=== PATIENT | male | born 1980 | race Hispanic/Latino ===

== ENCOUNTER → 2020-11-02 | Day surgery (SDC) | payer OTHER ==
[~2020-11-02] MED LIST: CYCLOBENZAPRINE10 MG PO; FENTANYL CITRATE/PF 100MCG/2 ML INJ ONE; IOPAMIDOL 200 MG/ML 20 ML VIAL IT ONE; LIDOCAINE HCL 1% 30ML-PF VIAL ONE; LIDOCAINE HCL 2% LOCAL INJ 5 ML SDV VIAL INJ ONE; MIDAZOLAM HCL 2 MG/2 ML VIAL ONE; POVIDONE IODINE 0.05% 0.05 % ML PO ONE; PROPOFOL IV EMULSION 10 MG/ML 20 ML VIAL ONE; SUMATRIPTAN SUC25 MG PO; TRIAMCINOLONE ACET 40 MG/ML VIAL ONE
[2020-11-02 08:20] VITALS: BP 114/61
== END | disposition home or self-care (01) ==
LOC: OR 06:01
PROVIDERS: ATTEND Physical Medicine & Rehabilitation Pain Medicine
DX: M47.896 Other spondylosis, lumbar region (principal); M54.2 Cervicalgia; G43.909 Migraine, unspecified, not intractable, without status migrainosus; E78.5 Hyperlipidemia, unspecified; N20.0 Calculus of kidney; Z01.812 Encounter for preprocedural laboratory examination; Z20.822 Contact with and (suspected) exposure to COVID-19; Z87.891 Personal history of nicotine dependence
CPT/HCPCS: 64493; 64494; 64495; J2001 ×2; J2250; J2704; J3010; J3301; Q9967; U0002; 77003

== ENCOUNTER → 2020-11-30 | Day surgery (SDC) | payer OTHER ==
[~2020-11-30] MED LIST changes: +DEXAMETHASONE SOD PHOS 10 MG/1 ML VIAL ONE; +GLYCOPYRROLATE INJ 0.2 MG/ML VIAL ONE; -LIDOCAINE HCL 2% LOCAL INJ 5 ML SDV VIAL INJ ONE; -TRIAMCINOLONE ACET 40 MG/ML VIAL ONE
[2020-11-30 08:45] VITALS: BP 107/65
== END | disposition home or self-care (01) ==
LOC: OR 06:59
PROVIDERS: ATTEND Physical Medicine & Rehabilitation Pain Medicine
DX: M54.16 Radiculopathy, lumbar region (principal); M47.896 Other spondylosis, lumbar region; M54.2 Cervicalgia; Z87.891 Personal history of nicotine dependence; Z87.442 Personal history of urinary calculi
CPT/HCPCS: 64483; 64484 ×2; J1100; J2001; J2250; J2704; J3010; Q9967; 77003

== ENCOUNTER → 2021-01-11 | Day surgery (SDC) | payer OTHER ==
[~2021-01-11] MED LIST changes: -GLYCOPYRROLATE INJ 0.2 MG/ML VIAL ONE
[2021-01-11 08:15] VITALS: BP 101/55
== END | disposition home or self-care (01) ==
LOC: OR 05:56
PROVIDERS: ATTEND Physical Medicine & Rehabilitation Pain Medicine
DX: M54.16 Radiculopathy, lumbar region (principal); M47.896 Other spondylosis, lumbar region; M54.2 Cervicalgia; Z87.891 Personal history of nicotine dependence
CPT/HCPCS: 64483; 64484 ×2; J1100; J2001; J2250; J2704; J3010; Q9967; 77003

== ENCOUNTER → 2021-03-22 | Day surgery (SDC) | payer OTHER ==
[~2021-03-22] MED LIST changes: +BUPIVACAINE 0.25% 30ML SDV ONE; -DEXAMETHASONE SOD PHOS 10 MG/1 ML VIAL ONE; -FENTANYL CITRATE/PF 100MCG/2 ML INJ ONE; -IOPAMIDOL 200 MG/ML 20 ML VIAL IT ONE; -MIDAZOLAM HCL 2 MG/2 ML VIAL ONE; -POVIDONE IODINE 0.05% 0.05 % ML PO ONE; -PROPOFOL IV EMULSION 10 MG/ML 20 ML VIAL ONE
[2021-03-22 07:10] VITALS: BP 114/55
== END | disposition home or self-care (01) ==
LOC: OR 06:08
PROVIDERS: ATTEND Physical Medicine & Rehabilitation Pain Medicine
DX: M47.896 Other spondylosis, lumbar region (principal); M54.16 Radiculopathy, lumbar region; M54.2 Cervicalgia; N20.0 Calculus of kidney; R00.1 Bradycardia, unspecified; Z01.810 Encounter for preprocedural cardiovascular examination; Z01.812 Encounter for preprocedural laboratory examination; Z20.822 Contact with and (suspected) exposure to COVID-19; Z87.891 Personal history of nicotine dependence
CPT/HCPCS: 64493; 64494; 64495; 93005; J2001; U0002; 77003

== ENCOUNTER → 2022-08-29 | Day surgery (SDC) | payer OTHER ==
[~2022-08-29] MED LIST changes: -BUPIVACAINE 0.25% 30ML SDV ONE; +DEXAMETHASONE SOD PHOS 10 MG/1 ML VIAL ONE; +FENTANYL CITRATE/PF 100MCG/2 ML INJ ONE; +GLYCOPYRROLATE INJ 0.2 MG/ML VIAL ONE; +IBUPROFEN400 MG PO; +IOPAMIDOL 200 MG/ML 20 ML VIAL IT ONE; +LIDOCAINE HCL 2% LOCAL INJ 5 ML SDV VIAL INJ ONE; +MIDAZOLAM HCL 2 MG/2 ML VIAL ONE; +POVIDONE IODINE 0.05% 0.05 % ML PO ONE; +PROPOFOL IV EMULSION 10 MG/ML 20 ML VIAL ONE; +TYLENOL EXTRA500 MG PO
[2022-08-29 07:15] VITALS: BP 115/69
== END | disposition home or self-care (01) ==
LOC: OR 05:37
PROVIDERS: ATTEND Physical Medicine & Rehabilitation Pain Medicine
DX: M54.16 Radiculopathy, lumbar region (principal); M47.816 Spondylosis without myelopathy or radiculopathy, lumbar region; M54.2 Cervicalgia; R00.1 Bradycardia, unspecified; Z01.810 Encounter for preprocedural cardiovascular examination; Z79.1 Long term (current) use of non-steroidal anti-inflammatories (NSAID)
CPT/HCPCS: 64483; 64484 ×2; 93005; J1100; J2001 ×2; J2250; J2704; J3010; Q9967; 77003